=== PATIENT | male | born 1980 | race African-American/Black ===

== ENCOUNTER 2021-04-20 04:13 | Emergency (ER) | payer MEDICAID ==
[~2021-04-20] VITALS: Ht 170.2 cm; Wt 82.5 kg
[~2021-04-20 04:13] MED LIST: ALB0.5UD IH; ALBU6.7H9 INH; ALBU8HFA PO; BECL8.7A7 IH; IBUP-1051 PO; MONT10TA21 PO; PRED10TA PO; PRED50TA PO
[2021-04-20 04:24] VITALS: BP 153/90
[2021-04-20] MEDS ORDERED: HYDROcodone/acetaminophen 10/325mg tab PO ONE (04:40)
--- NOTE | 2021-04-20 04:44 | NUR ---
Patient to X-Ray.
--- NOTE | 2021-04-20 04:54 | NUR ---
[place] 10 given in Xray
[2021-04-20] MEDS ORDERED: OXYC-145 PO (05:45)
[2021-04-20] MEDS ORDERED: IBUP-1986 PO (05:45)
== END 2021-04-20 06:47 | disposition home or self-care (01) ==
LOC: ER 04:14
DX: S52.502A Unspecified fracture of the lower end of left radius, initial encounter for closed fracture (principal); M79.602 Pain in left arm; J45.909 Unspecified asthma, uncomplicated; F17.200 Nicotine dependence, unspecified, uncomplicated; F12.90 Cannabis use, unspecified, uncomplicated; Z72.89 Other problems related to lifestyle; Z98.890 Other specified postprocedural states; Z79.899 Other long term (current) drug therapy; W11.XXXA Fall on and from ladder, initial encounter; Y93.89 Activity, other specified; Y92.89 Other specified places as the place of occurrence of the external cause; Y99.8 Other external cause status
CPT/HCPCS: 29125; 73030; 73090; 73130; 99284

== ENCOUNTER 2021-09-21 07:51 | Emergency (ER) | payer MEDICAID ==
[~2021-09-21] VITALS: Ht 170.2 cm; Wt 81.8 kg
[~2021-09-21 07:51] MED LIST changes: +IBUP-1986 PO; +OXYC-145 PO
[2021-09-21 07:58] VITALS: BP 155/102
[2021-09-21] MEDS ORDERED: PENI500T2 PO (08:05)
[2021-09-21] MEDS ORDERED: IBUP-1984 PO (08:05)
== END 2021-09-21 08:40 | disposition home or self-care (01) ==
LOC: ER 07:52
DX: K02.9 Dental caries, unspecified (principal); K08.89 Other specified disorders of teeth and supporting structures; J45.909 Unspecified asthma, uncomplicated; F12.90 Cannabis use, unspecified, uncomplicated; Z72.89 Other problems related to lifestyle; Z79.2 Long term (current) use of antibiotics; Z79.899 Other long term (current) drug therapy
CPT/HCPCS: 99283

== ENCOUNTER 2024-06-16 09:45 | Emergency (ER) | payer BC, MEDICAID ==
[~2024-06-16] VITALS: Ht 170.2 cm; Wt 77.0 kg
[~2024-06-16 09:45] MED LIST changes: +ALBU6.7H14 INH; -ALBU6.7H9 INH; +MONT-47 PO; -MONT10TA21 PO
[2024-06-16 09:52] VITALS: BP 124/81; PULSE 102; TEMP 98; O2SAT 97
[2024-06-16 10:48] VITALS: RESP 16
[2024-06-16] MEDS: ibuprofen tablet 400 MG TABLET PO ONE (10:50)
[2024-06-16] MEDS ORDERED: HYDR-3964 PO (10:51)
[2024-06-16] MEDS: acetaminophen 325mg tablet PO ONE (10:51)
[2024-06-16] MEDS ORDERED: NAPR-56 PO (10:51)
== END 2024-06-16 11:55 | disposition home or self-care (01) ==
LOC: ER 09:46
DX: S82.52XA Displaced fracture of medial malleolus of left tibia, initial encounter for closed fracture (principal); J45.909 Unspecified asthma, uncomplicated; F12.90 Cannabis use, unspecified, uncomplicated; Z79.899 Other long term (current) drug therapy; Z79.1 Long term (current) use of non-steroidal anti-inflammatories (NSAID); X58.XXXA Exposure to other specified factors, initial encounter; Y93.89 Activity, other specified; Y92.89 Other specified places as the place of occurrence of the external cause; Y99.8 Other external cause status
CPT/HCPCS: 29515; 73590; 73610; 99284